=== PATIENT | male | born 1970 | race Two or more races ===

== ENCOUNTER 2024-08-03 04:36 | Emergency (ER) | payer MEDICARE ==
[~2024-08-03] VITALS: Ht 177.8 cm; Wt 99.8 kg
[2024-08-03] MEDS ORDERED: CYCL10TA9 PO (04:57)
[2024-08-03] MEDS ORDERED: NAPR-1009 PO (04:57)
[2024-08-03] MEDS ORDERED: TDAP [DIPH/PERTUSSIS/TET] 0.5 ML VIAL IM ONE (05:00)
[2024-08-03] MEDS: TDAP [DIPH/PERTUSSIS/TET] 0.5 ML VIAL IM ONE (05:09)
[2024-08-03] MEDS ORDERED: CYCLOBENZAPRINE 10 MG TABLET ONE (06:21)
[2024-08-03] MEDS: IBUPROFEN 400 MG TABLET PO ONE (06:22)
[2024-08-03] MEDS ORDERED: IBUPROFEN 400 MG TABLET ONE (06:22)
[2024-08-03] MEDS: CYCLOBENZAPRINE 10 MG TABLET PO ONE (06:22)
[2024-08-03 06:28] VITALS: BP 128/88; TEMP 98.4; O2SAT 100
== END 2024-08-03 06:26 | disposition home or self-care (01) ==
LOC: ER 04:40
DX: S00.81XA Abrasion of other part of head, initial encounter (principal); M25.512 Pain in left shoulder; M25.562 Pain in left knee; R51.9 Headache, unspecified; Z79.899 Other long term (current) drug therapy; V89.2XXA Person injured in unspecified motor-vehicle accident, traffic, initial encounter; Y93.89 Activity, other specified; Y92.89 Other specified places as the place of occurrence of the external cause; Y99.8 Other external cause status
CPT/HCPCS: 70450-TC; 73030-TC; 73564-TC; 90715